=== PATIENT | female | born 1990 | race Caucasian/White ===

== ENCOUNTER 2017-09-03 17:50 | Emergency (ER) | payer MEDICAID ==
[2017-09-03 18:09] VITALS: BP 128/71
[2017-09-03] MEDS ORDERED: LIDOCAINE 1% INJ-PF (10 MG/ML) 30 ML SDV INJ ONE (19:23)
[2017-09-03] MEDS ORDERED: OXYCODONE-ACETAMINOPHEN 5-325 MG TABLET PO ONE (19:23)
--- NOTE | 2017-09-03 19:28 | ER Document Report ---
ED Skin Rash/Insect Bite/Abscs - General Chief Complaint: Abscess Stated Complaint: POSSIBLE ABSCESS Time Seen by Provider: 09/03/17 19:18 Mode of Arrival: Ambulatory Information source: Patient Notes: 27-year-old female presents to ED for large abscess to the light left forearm. She states she had a splinter in her arm a couple weeks ago and that she tried to get out. She states there was a little teary bump on her arm for about 2 weeks and yesterday is become much larger and then today it is very painful red and swollen. states he did not even notice it throughout the day that is how much it has grown today. TRAVEL OUTSIDE OF THE [place] IN LAST 30 DAYS: No - HPI Patient complains to provider of: Tender/swollen area Onset: Other - Started 2 weeks ago Onset/Duration: Gradual - very much larger yesterday and today Quality of pain: Sharp, Throbbing Severity: Severe Pain Level: 5 Skin Character: Abscess - Left arm Quality of rash: Painful Identify cause: Yes - States she tried to take the splint about a couple weeks ago Exacerbated by: Movement Relieved by: Denies Similar symptoms previously: Yes Recently seen / treated by doctor: No - Related Data Allergies/Adverse Reactions: amoxicillin [Amoxicillin] Allergy (Verified 11/13/13 06:56) Past Medical History - General Information source: Patient Last Menstrual Period: 08/14/2017 - Social History Smoking Status: Current Every Day Smoker Cigarette use (# per day): Yes - Pack per day Chew tobacco use (# tins/day): No Smoking Education Provided: Yes - 4 minutes Frequency of alcohol use: Heavy - 1-2 glasses of wine either every day or every other day Drug Abuse: None Occupation: Housewife Lives with: Family Family History: denies: Arthritis, CAD, COPD, CVA, DM, Hyperlipidemia, Hypertension, Malignancy, Thyroid Disfunction Patient has suicidal ideation: No Patient has homicidal ideation: No - Past Medical History Cardiac Medical History: Reports: None Pulmonary Medical History: Reports: None EENT Medical History: Reports: None Neurological Medical History: Reports: None Endocrine Medical History: Reports: None Renal/ Medical History: Reports: None Malignancy Medical History: Reports: None GI Medical History: Reports: None Musculoskeltal Medical History: Reports None Skin Medical History: Reports None Psychiatric Medical History: Reports: Hx Depression Traumatic Medical History: Reports: None Infectious Medical History: Reports: None Surgical Hx: Negative Past Surgical History: Reports: None - Immunizations Immunizations up to date: Yes Hx Diphtheria, Pertussis, Tetanus Vaccination: Yes Review of Systems - Review of Systems Constitutional: No symptoms reported EENT: No symptoms reported Cardiovascular: No symptoms reported Respiratory: No symptoms reported Gastrointestinal: No symptoms reported Genitourinary: No symptoms reported Female Genitourinary: No symptoms reported Musculoskeletal: No symptoms reported Skin: Other Hematologic/Lymphatic: No symptoms reported Neurological/Psychological: No symptoms reported -: Yes All other systems reviewed and negative Physical Exam - Vital signs Vitals: Temp Pulse Resp BP Pulse Ox 99.0 F 108 H 16 128/71 H 99 09/03/17 18:07 09/03/17 18:07 09/03/17 18:07 09/03/17 18:07 09/03/17 18:07 Interpretation: Normal - General General appearance: Appears well, Alert - HEENT Head: Normocephalic, Atraumatic Eyes: Normal Pupils: PERRL - Respiratory Respiratory status: No respiratory distress Chest status: Nontender Breath sounds: Normal Chest palpation: Normal - Cardiovascular Rhythm: Regular Heart sounds: Normal auscultation Murmur: No - Abdominal Inspection: Normal Distension: No distension Bowel sounds: Normal Tenderness: Nontender Organomegaly: No organomegaly - Back Back: Normal, Nontender - Extremities General upper extremity: Normal inspection, Nontender, Normal color, Normal ROM , Normal temperature General lower extremity: Normal inspection, Nontender, Normal color, Normal ROM , Normal temperature, Normal weight bearing. No: Brenden's sign - Neurological Neuro grossly intact: Yes Cognition: Normal Orientation: AAOx4 Oxford Coma Scale Eye Opening: Spontaneous Oxford Coma Scale Verbal: Oriented Oxford Coma Scale Motor: Obeys Commands Oxford Coma Scale Total: 15 Speech: Normal Motor strength normal: LUE, RUE, LLE, RLE Sensory: Normal - Psychological Associated symptoms: Normal affect, Normal mood - Skin Skin Temperature: Warm Skin Moisture: Dry Skin Color: Normal Skin irregularity: Abscess - large with cellulitis to elbow down almost to wrist Location of irregularity: Extremities - Left forearm Character of irregularity: Erythematous Irregularity with: Swelling, Tenderness, Warmth, Inflammation Course - Re-evaluation Re-evalutation: 09/03/17 21:[address] Stock due to the size and location of the abscess. He agreed that the patient could be started on clindamycin. Patient was started on clindamycin in the emergency room. She was treated with that after the I&D. Large amount of drainage was removed from the abscess. She was discharged home with a small prescription of Percocet and a prescription of clindamycin. Patient to return to the ED in 2 days to have the abscess reassessed and the packing removed. - Vital Signs Vital signs: Temp Pulse Resp BP Pulse Ox 99.0 F 108 H 16 128/71 H 99 09/03/17 18:07 09/03/17 18:07 09/03/17 18:07 09/03/17 18:07 09/03/17 18:07 Procedures - Incision and Drainage Left Arm Time completed: 20:10 Type: Simple Anesthetic type: 1% Lidocaine mL's of anesthetic: 10 Blade size: 11 I&D procedure: Shurclens applied, Iodoform packing placed Incision Method: Incision made by scalpel Amount/type of drainage: large amount purulent drainage Discharge - Discharge Clinical Impression: Abscess of left forearm Condition: Stable Disposition: HOME, SELF-CARE Instructions: Family Physicians / Practices Additional Instructions: ABSCESS: You have an abscess (boil). This a pus-forming infection, usually due to staph. Some boils may be left to drain on their own, but most require lancing. From the time the tender lump first appears, it may be three or four days before the abscess is ready to farhat. Local heat and rest help at this stage of treatment. An antibiotic may prevent spread of the infection. Once the abscess is opened, packing may be placed into it. This is done so pus is not sealed inside by premature closure of the cavity. The packing will be removed at your follow-up visit or you may be advised to remove it yourself at home. Sometimes this packing must be replaced a few times during healing. The wound will heal with surprisingly little scar. Depending on the size and location of an abscess, healing can take one to four weeks. You may shower and wash the area around the incision site two or three times a day. Antibiotics may be prescribed, but are usually not necessary after an abscess has been drained. If you develop fever, chills, worsening pain, or increasing swelling in the area, call the doctor or return immediately. POST INCISION AND DRAINAGE: You have had an incision made to allow drainage of an abscess. The incision must remain open so that pus and debris can drain from the wound. If the abscess cavity is large, packing is placed. This keeps the tissues from collapsing and trapping pus inside, while the body shrinks the cavity. The packing may need to be replaced every day or two. The physician will instruct you on the packing. Keep a bulky dressing over the area. Replace it if it becomes saturated with blood or pus. Do not disturb the packing (if present). You may shower and cleanse the area with gentle soap and warm water two or three times a day. Local warmth may be soothing, and may promote faster healing. Return if you develop high fever or chills, or if you note spreading redness, increasing swelling, or increasing tenderness. ORAL NARCOTIC MEDICATION: You have been given a prescription for pain control. This medication is a narcotic. It's best taken with food, as nausea can result if taken on an empty stomach. Don't operate machinery or drive within six hours of taking this medication. Do not combine this medicine with alcohol, or with any medication which can cause sedation (such as cold tablets or sleeping pills) unless you get permission from the physician. Narcotics tend to cause constipation. If possible, drink plenty of fluids and eat a diet high in fiber and fruits. Clindamycin You have been given a prescription for the antibiotic clindamycin. It is often prescribed for infections in the mouth, such as dental infections or abscesses, and for skin infections due to MRSA. It's important that you take all the medication, unless instructed otherwise by your physician. Failure to complete the entire course can result in relapse of your condition. Common side effects of antibiotics include nausea, intestinal cramping, or diarrhea. Women may develop vaginal yeast infections, and babies can get yeast (thrush) in the mouth following the use of antibiotics. Contact your physician if you develop significant side effects from this medication. Allergy to this antibiotic can result in hives, wheezing, faintness, or itching. If symptoms of allergy occur, stop the medication and call the doctor. Return in 48 hours to have this abscess reassessed the packing removed and possibly replaced. FOLLOW-UP CARE: Most simple abscesses will not require a follow up visit. If you had packing placed in the abscess, remove it as instructed by the physician. If you have been referred to a physician for follow-up care, call the physicians office for an appointment as you were instructed or within the next two days. If you experience worsening or a significant change in your symptoms, return to the Emergency Department at any time for re-evaluation. Prescriptions: Oxycodone HCl/Acetaminophen [Percocet 5-325 mg Tablet] 1 tab PO Q6HP PRN #5 tablet PRN Reason: Clindamycin HCl 300 mg PO QID #28 capsule Forms: Elevated Blood Pressure, Smoking Cessation Education
[2017-09-03] MEDS ORDERED: CLINDAMYCIN HCL 150 MG CAPSULE PO ONE (20:09)
[2017-09-03] MEDS ORDERED: DIPH/PERTUSS(ACELL)/TETANUS VAC/PF 0.5 ML SYR (>=10YO) IM ONE (20:09)
== END 2017-09-03 20:54 | disposition home or self-care (01) ==
LOC: ER 17:50
DX: L02.414 Cutaneous abscess of left upper limb (principal); L03.114 Cellulitis of left upper limb; F17.210 Nicotine dependence, cigarettes, uncomplicated; Z71.6 Tobacco abuse counseling; Z88.0 Allergy status to penicillin
CPT/HCPCS: 99406; 99283; 90471; 90715; 10060; A6266; J3490

== ENCOUNTER 2017-09-06 11:29 | Emergency (ER) | payer MEDICAID ==
[2017-09-06 11:48] VITALS: BP 106/54
[2017-09-06] MEDS ORDERED: HYDROCODONE/ACETAMINOPHEN 5-325 MG TABLET PO ONE (12:16)
--- NOTE | 2017-09-06 12:16 | ER Document Report ---
ED Wound - General Chief Complaint: Wound Recheck Stated Complaint: WOUND DRESSING Time Seen by Provider: 09/06/17 12:01 Mode of Arrival: Ambulatory Information source: Patient Notes: Patient is a 27-year-old female who was here 3 days ago and had an abscess drained on her left forearm, packed, she is here today to get the packing removed and check the wound. She states it has gotten a lot better but is still very painful. She denies any fevers or chills, she is on antibiotics that were given to her. TRAVEL OUTSIDE OF THE [place] IN LAST 30 DAYS: No - Related Data Allergies/Adverse Reactions: amoxicillin [Amoxicillin] Allergy (Verified 11/13/13 06:56) Past Medical History - General Information source: Patient - Social History Smoking Status: Current Every Day Smoker Chew tobacco use (# tins/day): No Frequency of alcohol use: Social Drug Abuse: None Family History: denies: Arthritis, CAD, COPD, CVA, DM, Hyperlipidemia, Hypertension, Malignancy, Thyroid Disfunction Patient has suicidal ideation: No Patient has homicidal ideation: No Renal/ Medical History: Denies: Hx Peritoneal Dialysis Psychiatric Medical History: Reports: Hx Depression - Immunizations Immunizations up to date: Yes Hx Diphtheria, Pertussis, Tetanus Vaccination: Yes Review of Systems - Review of Systems Constitutional: No symptoms reported EENT: No symptoms reported Cardiovascular: No symptoms reported Respiratory: No symptoms reported Gastrointestinal: No symptoms reported Genitourinary: No symptoms reported Female Genitourinary: No symptoms reported Musculoskeletal: No symptoms reported Skin: See HPI Hematologic/Lymphatic: No symptoms reported Neurological/Psychological: No symptoms reported Physical Exam - Vital signs Vitals: Temp Pulse Resp BP Pulse Ox 98.0 F 71 16 106/54 L 100 09/06/17 11:47 09/06/17 11:47 09/06/17 11:47 09/06/17 11:47 09/06/17 11:47 - Notes Notes: PHYSICAL EXAMINATION: GENERAL: Well-appearing and in no acute distress. HEAD: Atraumatic, normocephalic. EYES: Pupils equal round and reactive to light, extraocular movements intact, sclera anicteric, conjunctiva are normal. NECK: Normal range of motion, supple without lymphadenopathy LUNGS: CTAB and equal. No wheezes rales or rhonchi. HEART: Regular rate and rhythm without murmurs EXTREMITIES: Normal range of motion, no pitting edema. No cyanosis. NEUROLOGICAL: Cranial nerves grossly intact. Normal sensory/motor exams. PSYCH: Normal mood, normal affect. SKIN: Warm, Dry, normal turgor, packing inside left forearm, dorsal incision, pus over packing, slight erythema surrounding about a centimeter around incision only, tender to palpation Course - Re-evaluation Re-evalutation: 09/06/17 12:15 Packing was removed, incision after packing removed looks very well, minimal erythema, no drainage after packing was removed. Patient to continue antibiotics. - Vital Signs Vital signs: Temp Pulse Resp BP Pulse Ox 98.0 F 71 16 106/54 L 100 09/06/17 11:47 09/06/17 11:47 09/06/17 11:47 09/06/17 11:47 09/06/17 11:47 Discharge - Discharge Clinical Impression: Abscess packing removal Condition: Stable Disposition: HOME, SELF-CARE Additional Instructions: Return immediately for any new or worsening symptoms. Follow up with primary care provider, call tomorrow to make followup appointment. Prescriptions: Ibuprofen [Motrin 600 Mg Tablet] 600 mg PO TID #15 tablet
== END 2017-09-06 12:30 | disposition home or self-care (01) ==
LOC: ER 11:29
DX: Z48.01 Encounter for change or removal of surgical wound dressing (principal); L02.414 Cutaneous abscess of left upper limb; F17.200 Nicotine dependence, unspecified, uncomplicated; Z88.0 Allergy status to penicillin
CPT/HCPCS: 99282

== ENCOUNTER 2018-04-17 10:25 | Inpatient (IN) | payer MEDICAID ==
[2018-04-17] MEDS ORDERED: RINGERS SOLUTION,LACTATED 1,000 ML IV PRN (10:49)
[2018-04-17] MEDS ORDERED: CLINDAMYCIN 900 MG/D5W RTU 900 MG/50 ML RTUPB IV ONE (11:09)
[2018-04-17 11:54] LABS: ABSOLUTE EOSINOPHILS # (AUTO) 0.1 10^3/uL (0.0-0.6); ABSOLUTE LYMPHOCYTES (AUTO) 2.1 10^3/uL (0.5-4.7); ABSOLUTE MONOCYTES (AUTO) 0.6 10^3/uL (0.1-1.4); ABSOLUTE NEUT (AUTO) 7.9 10^3/uL (1.7-8.2); BASOPHILS % (AUTO) 0.2 % (0-2); EOSINOPHILS % (AUTO) 0.5 % (0-6); HEMATOCRIT 26.9 % (36.0-47.0); HEMOGLOBIN 9.4 g/dL (12.0-15.5); LYMPHOCYTES % (AUTO) 19.9 % (13-45); MEAN CORPUSCULAR HEMOGLOBIN 29.7 pg (27.0-33.4); MEAN CORPUSCULAR HGB CONC 34.8 g/dL (32.0-36.0); MEAN CORPUSCULAR VOLUME 85 fl (80-97); MONOCYTES % (AUTO) 5.9 % (3-13); PLATELET COUNT 206 10^3/uL (150-450); RED BLOOD COUNT 3.15 10^6/uL (3.72-5.28); RED CELL DISTRIBUTION WIDTH 12.7 % (11.5-14.0); SEGMENTED NEUTROPHILS % (AUTO) 73.5 % (42-78); TOTAL CELLS COUNTED % (AUTO) 100 %; WHITE BLOOD COUNT 10.7 10^3/uL (4.0-10.5)
[2018-04-17] MEDS: CLINDAMYCIN 900 MG/D5W RTU 900 MG/50 ML RTUPB IV SCH ×2 (11:56→21:05)
[2018-04-17] MEDS ORDERED: CEFAZOLIN 1 GM/D5W RTU 1 GM/50 ML RTUPB IV ONE ×2 (12:29→16:21)
[2018-04-17] MEDS ORDERED: OXYTOCIN 10 UNIT/ML VIAL ONE (12:46)
[2018-04-17] MEDS ORDERED: MISOPROSTOL 0.2 MG TABLET ONE (12:47)
[2018-04-17] MEDS ORDERED: EPHEDRINE SULFATE INJ 50 MG/1 ML AMPULE ONE (12:47)
[2018-04-17] MEDS ORDERED: FENTANYL CITRATE INJ/PF 100 MCG/2 ML AMPUL ONE (12:47)
[2018-04-17] MEDS ORDERED: LIDOCAINE 1% INJ-PF (10 MG/ML) 30 ML SDV ONE (12:48)
[2018-04-17] MEDS ORDERED: FENTANYL/BUPIVACAINE/NS/PF 300 MCG/150 ML RTUINJ EPI ONE (12:48)
[2018-04-17] MEDS ORDERED: OXYTOCIN/NORMAL SALINE 20 UNIT/1,000 ML RTUINJ ONE (12:48)
[2018-04-17] MEDS ORDERED: BUPIVACAINE HCL 0.5 % INJ/PF 30 ML SDV ONE ×2 (12:55→16:54)
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
[2018-04-17] MEDS ORDERED: OXYTOCIN/NORMAL SALINE 20 UNIT/1,000 ML RTUINJ IV PRN ×2 (15:06→18:46)
[2018-04-17] MEDS ORDERED: CEFAZOLIN 1 GM/D5W RTU 1 GM/50 ML RTUPB IV SCH (18:00)
[2018-04-17] MEDS ORDERED: ACETAMINOPHEN 650 MG SUPP.RECT PR PRN (18:46)
[2018-04-17] MEDS ORDERED: ZOLPIDEM TARTRATE 5 MG TABLET PO PRN (18:46)
[2018-04-17] MEDS ORDERED: MEASLES,MUMPS&RUBELLA VACC/PF 0.5 ML VIAL SUBCUT PRN (18:46)
[2018-04-17] MEDS ORDERED: DIPHENHYDRAMINE HCL 25 MG CAPSULE PO PRN (18:46)
[2018-04-17] MEDS ORDERED: BENZOCAINE/MENTHOL AEROSOL SPRAY 56 ML TOP PRN (18:46)
[2018-04-17] MEDS ORDERED: NA PHOS,M-B/NA PHOS,DI-BA (ADULT) 133 ML ENEMA PR PRN (18:46)
[2018-04-17] MEDS ORDERED: PSEUDOEPHEDRINE HCL 30 MG TABLET PO PRN (18:46)
[2018-04-17] MEDS ORDERED: DIPH/PERTUSS(ACELL)/TETANUS VAC/PF 0.5 ML SYR (>=10YO) IM PRN (18:46)
[2018-04-17] MEDS ORDERED: DIBUCAINE 1% OINTMENT 28 GM TP PRN (18:46)
[2018-04-17] MEDS ORDERED: GLYCERIN/WITCH HAZEL LEAF 1 EACH MED..PAD TP PRN (18:46)
[2018-04-17] MEDS ORDERED: MAGNESIUM HYDROXIDE SUSP 30 ML UDCUP PO PRN (18:46)
[2018-04-17] MEDS ORDERED: PROMETHAZINE HCL INJ 25 MG/1 ML VIAL IV PRN (18:46)
[2018-04-17] MEDS ORDERED: PROMETHAZINE HCL 25 MG TABLET PO PRN (18:46)
[2018-04-17] MEDS ORDERED: PROMETHAZINE HCL 25 MG SUPP.RECT PR PRN (18:46)
--- NOTE | 2018-04-17 19:42 | Warning Signs in Babies ---
VOD Warning Signs Datetime Report Generated by [facility]: 04/17/2018 19:42 VOD#608 -Warning Signs in Babies: Viewed with Parent(s)/Family (04/17/2018 10:59:Renetta Gandara RN)
[2018-04-17] MEDS ORDERED: IBUPROFEN 800 MG TABLET ONE (20:43)
[2018-04-17 22:00] LABS: APPEARANCE,URINE CLOUDY; BILIRUBIN,URINE NEGATIVE (NEGATIVE); COLOR,URINE YELLOW; GLUCOSE, URINE 50 mg/dL (NEGATIVE); KETONES,URINE NEGATIVE (NEGATIVE); LEUKOCYTE ESTERASE,URINE SMALL (NEGATIVE); NITRITE,URINE NEGATIVE (NEGATIVE); PROTEIN,URINE 100 mg/dL (NEGATIVE); URINE SPECIFIC GRAVITY 1.013; UROBILINOGEN,URINE NEGATIVE mg/dL (<2.0)
[2018-04-17] MEDS ORDERED: FAMOTIDINE 20 MG TABLET PO SCH (22:00)
[2018-04-17 22:16] LABS: URINE AMPHETAMINES SCREEN NEGATIVE; URINE BARBITURATES SCREEN NEGATIVE; URINE BENZODIAZEPINES SCREEN NEGATIVE; URINE COCAINE SCREEN NEGATIVE; URINE MARIJUANA (THC) SCREEN NEGATIVE; URINE METHADONE SCREEN NEGATIVE; URINE PHENCYCLIDINE SCREEN NEGATIVE
[2018-04-17] MEDS: IBUPROFEN 800 MG TABLET PO SCH (23:47)
[2018-04-18] MEDS: IBUPROFEN 800 MG TABLET PO SCH (05:42)
[2018-04-18 06:55] LABS: HEMATOCRIT 27.9 % (36.0-47.0); HEMOGLOBIN 9.4 g/dL (12.0-15.5); MEAN CORPUSCULAR HGB CONC 33.9 g/dL (32.0-36.0); MEAN CORPUSCULAR VOLUME 86 fl (80-97); PLATELET COUNT 195 10^3/uL (150-450); RED BLOOD COUNT 3.26 10^6/uL (3.72-5.28); RED CELL DISTRIBUTION WIDTH 13.1 % (11.5-14.0); WHITE BLOOD COUNT 9.2 10^3/uL (4.0-10.5)
[2018-04-18 08:22] VITALS: BP 126/72
[2018-04-18] MEDS ORDERED: FERROUS SULFATE 325 MG TABLET PO SCH (10:00)
[2018-04-18] MEDS ORDERED: SENNOSIDES/DOCUSATE 8.6-50 MG 1 EACH TABLET PO SCH (10:00)
[2018-04-18] MEDS ORDERED: PRENATAL VITAMIN W DHA CAPSULE PO SCH (10:00)
[2018-04-18] MEDS ORDERED: BUPRENORPHINE HCL SL SCH (10:00)
[2018-04-18] MEDS ORDERED: DOCUSATE SODIUM 100 MG CAPSULE PO SCH (10:00)
--- NOTE | 2018-04-18 10:38 | PDOC PROGRESS REPORT ---
Subjective-OB Progress Note for:: 04/18/18 Subjective: pt doing well, going outside to smoke frequently per staff. Pt reports light bleeding, reg diet and voiding without difficulty. She would like to be discharged today, states baby is unable to go home anyway. Physical Exam (OB) Vital Signs: Temp Pulse Resp BP Pulse Ox 97.5 F 73 16 126/72 H 99 04/18/18 07:13 04/18/18 07:13 04/18/18 07:13 04/18/18 07:13 04/18/18 07:13 Intake & Output 04/17/18 04/18/18 04/19/18 06:59 06:59 05:59 Intake Total 500 Balance 500 Weight 58.7 kg - PIH/Pre-Eclampsia Clonus: Negative Headache: Absent Epigastric Pain: No Visual Changes: No - Lochia Lochia Amount: Scant < 10 ml Lochia Color: Rubra/Red - Abdomen Description: Soft, Flat Hernia Present: No Fundal Description: Firm, Midline Fundal Height: u/u - u/2 Objective-Diagnostic Laboratory: 04/18/18 06:39 04/17/18 04/17/18 04/17/18 10:35 11:38 11:38 WBC 10.7 H RBC 3.15 L Hgb 9.4 L Hct 26.9 L MCV 85 MCH 29.7 MCHC 34.8 RDW 12.7 Plt Count 206 Seg Neutrophils % 73.5 Lymphocytes % 19.9 Monocytes % 5.9 Eosinophils % 0.5 Basophils % 0.2 Absolute Neutrophils 7.9 Absolute Lymphocytes 2.1 Absolute Monocytes 0.6 Absolute Eosinophils 0.1 Absolute Basophils 0.0 Urine Color YELLOW Urine Appearance CLOUDY Urine pH 6.0 Ur Specific [place] 1.013 Urine Protein 100 H Urine Glucose (UA) 50 H Urine Ketones NEGATIVE Urine Blood SMALL H Urine Nitrite NEGATIVE Ur Leukocyte Esterase SMALL H Blood Type A POSITIVE Antibody Screen NEGATIVE 04/18/18 06:39 WBC 9.2 RBC 3.26 L Hgb 9.4 L Hct 27.9 L MCV 86 MCH 29.0 MCHC 33.9 RDW 13.1 Plt Count 195 Seg Neutrophils % Lymphocytes % Monocytes % Eosinophils % Basophils % Absolute Neutrophils Absolute Lymphocytes Absolute Monocytes Absolute Eosinophils Absolute Basophils Urine Color Urine Appearance Urine pH Ur Specific [place] Urine Protein Urine Glucose (UA) Urine Ketones Urine Blood Urine Nitrite Ur Leukocyte Esterase Blood Type Antibody Screen Assessment and Plan(PN) - Assessment and Plan (1) Delivery normal Is this a current diagnosis for this admission?: Yes (2) Hepatitis C infection Qualifiers: Viral hepatitis chronicity: acute Is this a current diagnosis for this admission?: Yes (3) History of drug abuse Is this a current diagnosis for this admission?: Yes (4) History of depression Is this a current diagnosis for this admission?: Yes - Time Spent with Patient Time with patient: Less than 15 minutes Medications reviewed and adjusted accordingly: Yes - Disposition Anticipated Discharge: Home Within: within 24 hours
--- NOTE | 2018-04-18 10:39 | PDOC DISCHARGE SUMMARY ---
Final Diagnosis Discharge Date: 04/18/18 - Final Diagnosis (1) Delivery normal Is this a current diagnosis for this admission?: Yes (2) Hepatitis C infection Is this a current diagnosis for this admission?: Yes (3) History of drug abuse Is this a current diagnosis for this admission?: Yes (4) History of depression Is this a current diagnosis for this admission?: Yes Discharge Data - Discharge Medication Home Medications: Buprenorphine HCl [Subutex 8 mg Sublingual Tablet] 2.5 tab SL DAILY 04/17/18 Vit,Calc76/Iron/Folic [Prenatabs Rx Tablet] 1 each PO DAILY 04/17/18 Reason(s) for Admission: Onset of Labor, PROM, Group B Strep Positive Procedures: NST Intrapartum Procedure(s): Spontaneous Vaginal Delivery - Diagnosis Test Laboratory: Temp Pulse Resp BP Pulse Ox 97.5 F 73 16 126/72 H 99 04/18/18 07:13 04/18/18 07:13 04/18/18 07:13 04/18/18 07:13 04/18/18 07:13 04/17/18 04/17/18 04/18/18 10:35 11:38 06:39 RBC 3.15 L 3.26 L Hgb 9.4 L 9.4 L Hct 26.9 L 27.9 L Urine Opiates Screen NEGATIVE - Discharge information/Instructions Discharge Activity: Balance Activity w/Rest, Pelvic Rest Discharge Diet: Regular Disposition: HOME, SELF-CARE Follow up with: [facility] in: 3, Weeks
[2018-04-18] MEDS ORDERED: MEDROXYPROGESTERONE ACET INJ 150 MG/1 ML VIAL IM ONE (10:41)
--- NOTE | 2018-04-22 14:12 | Delivery Summary ---
Del Sum A-C Datetime Report Generated by CPN: 04/22/2018 14:12 DELIVERY PERSONNEL DELIVERY PERSONNEL: [id number] Delivery Doctor:: Roxann Coles MD Anesthesiologist:: Mary Koroma MD Labor and Delivery Nurse:: Renetta Gandara RN Nursery Nurse:: Pranav Pena RN Social Security Assessor/PSYCHIATRIC MENTAL HEALTH NURSE: Rica Alvarez CST Social Security Assessor/PSYCHIATRIC MENTAL HEALTH NURSE: Britney Damon CNA II MATERNAL INFORMATION Delivery Anesthesia: Epidural Medications After Delivery: Pitocin Drip 20 Units/1000ml NSS Estimated Blood Loss (ml): 250 Maternal Complications: Premature Rupture of Membranes Complication Details: Tight Nucal X1 LABOR SUMMARY EDC: 05/01/2018 00:00 Attempted: No Labor Anesthesia: Epidural LABOR INFORMATION Reason for Induction: Not Applicable Onset of Labor: 04/17/2018 08:00 Complete Dilatation: 04/17/2018 17:58 Group B Beta Strep: positive Antibiotics # of Doses: 3 Antibiotics Time of Last Dose: 1630 Name of Antibiotic Given: Clindamycin and Ancef Steroids Given: None Reason Steroids Not Administered: Not Applicable MEMBRANES Membranes Rupture Method: Spontaneous Rupture of Membranes: 04/17/2018 10:00 Length of Rupture (hr): 8.35 Amniotic Fluid Color: Clear Amniotic Fluid Amount: Moderate Amniotic Fluid Odor: Normal STAGES OF LABOR Stage 1 hr: 9 Stage 1 min: 58 Stage 2 hr: 0 Stage 2 min: 23 Stage 3 hr: 0 Stage 3 min: 3 Total Time in Labor hr: 10 Total Time in Labor min: 24 VAGINAL DELIVERY Episiotomy: None Laceration #1: None Laceration Extension #1: N/A Laceration Repair: Not Applicable Sponge Count Correct: Vaginal Sweep Performed Sharps Count Correct: Yes CSECTION DELIVERY Primary Indication: N/A Secondary Indication: N/A BABY A INFORMATION Delivery Date/Time: 04/17/2018 18:21 Method of Delivery: Vaginal Born in Route : No : N/A Forceps: N/A Vacuum Extraction: N/A Shoulder Dystocia : No PRESENTATION/POSITION BABY A Presentation: Cephalic Cephalic Presentation: Vertex Vertex Position: Left Occipital Anterior Breech Presentation: N/A PLACENTA INFORMATION BABY A Placenta Delivery Time : 04/17/2018 18:24 Placenta Method of Delivery: Spontaneous Placenta Status: Delivered SCORES BABY A Heart Rate 1 min: >100 bpm Resp Effort 1 min: Good Cry Reflex Irritability 1 min: Cough or Sneeze or Pulls Away Muscle Tone 1 min: Active Motion Color 1 min: Body Shafer, Extremities Blue Resuscitation Effort 1 min: Tactile Stimulation SCORE 1 MIN: 9 Heart Rate 5 min: >100 bpm Resp Effort 5 min: Good Cry Reflex Irritability 5 min: Cough or Sneeze or Pulls Away Muscle Tone 5 min: Active Motion Color 5 min: Body Shafer, Extremities Blue Resuscitation Effort 5 min: Tactile Stimulation SCORE 5 MIN: 9 INFORMATION BABY A Gestational Age at Delivery: 38.0 Gestational Status: Early Term- 37- 38.6 Weeks Outcome : Liveborn Condition : Stable Infant Sex: Male IDENTIFICATION BABY A Verification Date/Time: 04/17/2018 19:05 ID Band Number: [id number] Mother's Name Verified: Yes RN Verifying : Meredith Gandara, [facility] Additional Verifying Personnel: Jose A Pena RN WEIGHT/LENGTH BABY A Infant Birthweight (gm): 2830 Weight (lb): 6 Weight (oz): 4 Infant Length (in): 19.00 Infant Length (cm): 48.26 CORD INFORMATION BABY A No. Cord Vessels: 3 Nuchal Cord : Around Neck x1, Tight Cord Blood Taken: Yes-For Storage (Mom's Blood type +) Infant Suction: Mouth; Nose ASSESSMENT BABY A Infant Complications: None Physical Findings at Delivery: Within Normal Limits Infant Respirations: Appears Normal Skin to Skin: Yes Transferred To: Remains with Mother BABY B INFORMATION : N/A SIGNATURES Signature: with User ID: [email or web address] : I was personally available for consultation and serving as supervising physician for the MLP.
== END 2018-04-18 12:50 | disposition home or self-care (01) | DRG 806 ==
LOC: LC 10:25 → LR 10:58 → 2S 21:16
PROVIDERS: ADMIT Obstetrics & Gynecology; ATTEND Obstetrics & Gynecology
PROC: 10E0XZZ Delivery of Products of Conception, External Approach (ICD-10-PCS; principal; 2018-04-17)
PROC: 4A1HXCZ Monitoring of Products of Conception, Cardiac Rate, External Approach (ICD-10-PCS; 2018-04-17)
DX: O98.42 Viral hepatitis complicating childbirth (principal); B17.10 Acute hepatitis C without hepatic coma; Z37.0 Single live birth; O69.1XX0 Labor and delivery complicated by cord around neck, with compression, not applicable or unspecified; O99.334 Smoking (tobacco) complicating childbirth; F17.200 Nicotine dependence, unspecified, uncomplicated; O99.52 Diseases of the respiratory system complicating childbirth; J45.909 Unspecified asthma, uncomplicated; O99.344 Other mental disorders complicating childbirth; F43.10 Post-traumatic stress disorder, unspecified; O99.824 Streptococcus B carrier state complicating childbirth; O42.92 Full-term premature rupture of membranes, unspecified as to length of time between rupture and onset of labor; Z88.0 Allergy status to penicillin; Z3A.38 38 weeks gestation of pregnancy
CPT/HCPCS: 36415; 80307; 81005; 85025; 85027; 86592; 86850; 86900; 86901; 94760; J0690; J2590; J3010; J3490

== ENCOUNTER 2019-12-17 08:51 | Emergency (ER) | payer MEDICAID ==
[2019-12-17 10:16] LABS: APPEARANCE,URINE CLOUDY; BILIRUBIN,URINE NEGATIVE (NEGATIVE); COLOR,URINE YELLOW; GLUCOSE, URINE NEGATIVE (NEGATIVE); KETONES,URINE NEGATIVE (NEGATIVE); LEUKOCYTE ESTERASE,URINE LARGE (NEGATIVE); NITRITE,URINE POSITIVE (NEGATIVE); PROTEIN,URINE 30 mg/dL (NEGATIVE); URINE SPECIFIC GRAVITY 1.017; UROBILINOGEN,URINE NEGATIVE mg/dL (<2.0)
[2019-12-17] MEDS ORDERED: CEFTRIAXONE INJ 1000 MG VIAL IV ONE (10:49)
--- NOTE | 2019-12-17 10:51 | ER Document Report ---
ED GI/ - General Chief Complaint: Fever Stated Complaint: FLANK PAIN Time Seen by Provider: 12/17/19 10:02 Notes: This 29-year-old woman presents to the emergency department with complaint of urinary symptoms. She was complaining of foul-smelling urine with urgency and frequency. She has had a history of UTI in the past. States that on Friday she developed fever, back pain, chills and urgency. States that she waited to see if the symptoms will improve however, they have worsened. TRAVEL OUTSIDE OF THE [place] IN LAST 30 DAYS: No - Related Data Allergies/Adverse Reactions: amoxicillin [Amoxicillin] Allergy (Verified 12/17/19 09:41) Past Medical History - Social History Smoking Status: Current Every Day Smoker Family History: denies: Arthritis, CAD, COPD, CVA, DM, Hyperlipidemia, Hypertension, Malignancy, Thyroid Disfunction Renal/ Medical History: Denies: Hx Peritoneal Dialysis Psychiatric Medical History: Reports: Hx Depression - Immunizations Immunizations up to date: Yes Hx Diphtheria, Pertussis, Tetanus Vaccination: Yes Review of Systems - Review of Systems Notes: Constitutional:+ fever. HENT: Negative for sore throat. Eyes: Negative for visual changes. Cardiovascular: Negative for chest pain. Respiratory: Negative for shortness of breath. Gastrointestinal: Negative for abdominal pain, vomiting or diarrhea. Genitourinary: See HPI Musculoskeletal: + Back pain. Skin: Negative for rash. Neurological: Negative for headaches, weakness or numbness. 10 point ROS negative except as marked above and in HPI. Physical Exam - Vital signs Vitals: Temp Pulse Resp BP Pulse Ox 97.6 F 115 H 20 133/78 H 100 12/17/19 08:56 12/17/19 08:56 12/17/19 08:56 12/17/19 08:56 12/17/19 08:56 - Notes Notes: PHYSICAL EXAMINATION: Physical Exam: General: Well-nourished well-developed 29-year-old female in mild distress secondary to pain HEENT: NC/AT, pupils equal round and reactive to light, MM moist,nares clear, oropharynx clear, airway patent Neck: supple, no adenopathy, no masses. Good range of motion Lungs: clear, no wheezing, no rales no rhonchi CVS: Regular rate and rhythm no murmur gallop or rub Abdomen: Soft, active, nontender, no masses, no hepatosplenomegaly Back: + Tenderness right CVA Ext: No edema, clubbing or cyanosis. Neuro: Alert and responsive, moving all 4 extremities on command, cranial nerves intact, no focal findings Skin: Intact no open lesions, no rash Course - Re-evaluation Re-evalutation: 12/17/19 12:15 Patient has very poor peripheral vein access secondary to prior IV drug use. She refuses a external jugular IV, she is given Rocephin 1 g IM and Toradol 60 mg IM. She is also given prescriptions for oral Toradol and cefdinir. I have asked her to push fluids and to use Zofran for nausea, return to the emergency department if her symptoms are worsening or if she has other concerns. Patient is in agreement with this plan. - Vital Signs Vital signs: Temp Pulse Resp BP Pulse Ox 97.8 F 115 H 19 109/72 100 12/17/19 12:01 12/17/19 08:56 12/17/19 12:01 12/17/19 12:01 12/17/19 12:01 - Laboratory Result Diagrams: 12/17/19 10:44 12/17/19 10:44 Laboratory results interpreted by me: 12/17/19 12/17/19 12/17/19 09:35 10:44 10:44 WBC 17.5 H Lymph % (Auto) 10.1 L Absolute Neuts (auto) 14.7 H Seg Neutrophils % 84.2 H Glucose 151 H Total Protein 9.1 H Urine Protein 30 H Urine Nitrite POSITIVE H Ur Leukocyte Esterase LARGE H Discharge - Discharge Clinical Impression: Pyelonephritis Fever Qualifiers: Fever type: unspecified Qualified Code(s): R50.9 - Fever, unspecified Condition: Good Disposition: HOME, SELF-CARE Instructions: Antibiotic Therapy ([facility]), Antinausea Medication ([facility]), Toradol Injection ([facility]), Rocephin ([facility]) Additional Instructions: You were seen and diagnosed in the emergency department with a urinary tract infection and associated complications of pyelonephritis. You were given a shot of antibiotics and a shot of Toradol, prescriptions have been given for Zofran, Toradol tablets, and Cefdinir. Please take those medications as prescribed, follow-up with your primary care doctor in 10 to 14 days for recheck of the urine . If your symptoms are worsening or if you have other concerns you may return to the emergency department for further evaluation and treatment. HOME CARE INSTRUCTIONS & INFORMATION: Thank you for choosing us for your medical needs. We hope you're satisfied with the care you received. After you leave, you must properly care for your problem and, at the same time, observe its progress. Any condition can change. Some illnesses can change rapidly over hours or days. If your condition worsens, return to the Emergency Department or see your physician promptly. ABOUT YOUR X-RAYS AND EKG'S: If you had an EKG or X-rays taken, they have been read by the Emergency Physician. The X-rays and EKG's will also be read by a Radiologist or University Administrative Assistant within 24 hours. If discrepancies are noted, you will be notified by telephone. Please be certain the ED has a correct telephone number & address where you can be reached. Also, realize that some fractures or abnormalities do not show up on initial X-rays. If your symptoms continue, see your physician. ABOUT YOUR LABORATORY TEST: If you had laboratory tests, the results have been reviewed by the Emergency Physician. Some test results (for example cultures) may not be available for several days. You will be contacted if any test result shows you need additional treatment. Please be certain the ED has a correct telephone number and address where you can be reached. ABOUT YOUR MEDICATIONS: You will receive instructions on how to take your medicine on the prescription label you receive. Additional information may be provided by the Pharmacy. If you have questions afterwards, call the ED for clarification or further instructions. Some prescribed medications may cause drowsiness. Do not perform tasks such as driving a car or operating machinery without consulting your Pharmacist. If you feel you need a refill of pain medication, your condition will need re-evaluation. Please do not call for a refill of any medication. ABOUT YOUR SIGNATURE: Signature of this document acknowledges to followin. Understanding that you received emergency treatment and that you may be released before al medical problems are known or treated. Please be certain the ED has a correct phone number & address where you can be reached. 2. Acknowledgement that you will arrange for follow-up care as recommended. 3. Authorization for the Emergency Physician to provide information to your follow-up Physician in order to maximize your care. AT ANY TIME, IF YOUR SYMPTOMS CHANGE SIGNIFICANTLY OR WORSEN OR YOU DEVELOP NEW SYMPTOMS, RETURN TO THE EMERGENCY DEPARTMENT IMMEDIATELY FOR RE-EVALUATION. OUR GOAL IS TO PROVIDE EXCELLENT MEDICAL CARE! WE HOPE THAT WE HAVE MET YOUR EXPECTATIONS DURING YOUR EMERGENCY DEPARTMENT VISIT AND THAT YOU FEEL YOU HAVE RECEIVED EXCELLENT CARE! Prescriptions: Cefdinir 300 mg PO BID #20 capsule Ketorolac Tromethamine [Toradol 10 mg Tablet] 10 mg PO Q6 #14 tablet Ondansetron [Zofran Odt 4 mg Tablet] 1 - 2 tab PO Q4H PRN #10 tab.rapdis PRN Reason: For Nausea/Vomiting
[2019-12-17 11:06] LABS: ABSOLUTE LYMPHOCYTES (AUTO) 1.8 10^3/uL (0.5-4.7); ABSOLUTE NEUT (AUTO) 14.7 10^3/uL (1.7-8.2); BASOPHILS % (AUTO) 0.2 % (0-2); EOSINOPHILS % (AUTO) 0.1 % (0-6); HEMATOCRIT 40.9 % (36.0-47.0); LYMPHOCYTES % (AUTO) 10.1 % (13-45); MEAN CORPUSCULAR HEMOGLOBIN 29.5 pg (27.0-33.4); MEAN CORPUSCULAR HGB CONC 34.2 g/dL (32.0-36.0); MEAN CORPUSCULAR VOLUME 86 fl (80-97); MONOCYTES % (AUTO) 5.4 % (3-13); PLATELET COUNT 164 10^3/uL (150-450); RED BLOOD COUNT 4.75 10^6/uL (3.72-5.28); RED CELL DISTRIBUTION WIDTH 12.6 % (11.5-14.0); SEGMENTED NEUTROPHILS % (AUTO) 84.2 % (42-78); TOTAL CELLS COUNTED % (AUTO) 100 %; WHITE BLOOD COUNT 17.5 10^3/uL (4.0-10.5)
[2019-12-17 11:15] LABS: ALBUMIN 4.7 g/dL (3.5-5.0); ALKALINE PHOSPHATASE 88 U/L (38-126); ANION GAP 10 (5-19); ASPARTATE AMINO TRANSFERASE 29 U/L (14-36); BILIRUBIN,DIRECT 0.1 mg/dL (0.0-0.4); BILIRUBIN,TOTAL 0.6 mg/dL (0.2-1.3); BLOOD UREA NITROGEN 14 mg/dL (7-20); CALCIUM 9.6 mg/dL (8.4-10.2); CARBON DIOXIDE 24 mmol/L (22-30); CHLORIDE 104 mmol/L (98-107); GLUCOSE 151 mg/dL (75-110); POTASSIUM 4.3 mmol/L (3.6-5.0); TOTAL PROTEIN 9.1 g/dL (6.3-8.2)
[2019-12-17] MEDS ORDERED: KETOROLAC TROMETHAMINE 60 MG/2 ML SDV IM ONE (11:28)
[2019-12-17 12:10] VITALS: BP 109/72
== END 2019-12-17 12:33 | disposition home or self-care (01) ==
LOC: ER 08:51
DX: N12 Tubulo-interstitial nephritis, not specified as acute or chronic (principal); R50.9 Fever, unspecified; R10.9 Unspecified abdominal pain; M54.9 Dorsalgia, unspecified; F17.200 Nicotine dependence, unspecified, uncomplicated; Z88.0 Allergy status to penicillin
CPT/HCPCS: 99283; 96372; 96374; 36415; 83690; 84703; 85025; 80053; 81001; J1885; J0696

== ENCOUNTER 2020-04-08 14:00 | Emergency (ER) | payer MEDICAID ==
--- NOTE | 2020-04-08 14:37 | ER Document Report ---
ED Medical Screen (RME) - General Chief Complaint: Abdominal Pain Stated Complaint: ABDOMINAL PAIN, BACK PAIN Time Seen by Provider: 04/08/20 14:30 Mode of Arrival: Ambulatory Information source: Patient Notes: 29-year-old female presented to ED for complaint of fevers on and off since yesterday pain in the back and abdomen times a week vomiting yesterday. She states she is a former IV drug user and they never can get her blood she is oliguric after 2 tries to get her blood. I have asked the techs to try once and then call lab. She does smoke 1/2 pack a day drinks on holidays does use marijuana occasionally but does not use any IV drugs now according to the patient. She states she has had frequent kidney infections and that is what this feels like. Patient is alert oriented respirations regular nonlabored speaking in full sentences. I have greeted and performed a rapid initial assessment of this patient. A comprehensive ED assessment and evaluation of the patient, analysis of test results and completion of medical decision making process will be conducted by an additional ED providers. TRAVEL OUTSIDE OF THE [place] IN LAST 30 DAYS: No - Related Data Allergies/Adverse Reactions: amoxicillin [Amoxicillin] Allergy (Verified 12/17/19 09:41) Past Medical History Renal/ Medical History: Denies: Hx Peritoneal Dialysis Psychiatric Medical History: Reports: Hx Depression - Immunizations Immunizations up to date: Yes Hx Diphtheria, Pertussis, Tetanus Vaccination: Yes Physical Exam - Vital signs Vitals: Temp Pulse Resp BP Pulse Ox 98.3 F 110 H 16 137/80 H 100 04/08/20 14:04 04/08/20 14:04 04/08/20 14:04 04/08/20 14:04 04/08/20 14:04 Course - Vital Signs Vital signs: Temp Pulse Resp BP Pulse Ox 98.3 F 110 H 16 137/80 H 100 04/08/20 14:04 04/08/20 14:04 04/08/20 14:04 04/08/20 14:04 04/08/20 14:04
[2020-04-08 15:16] LABS: APPEARANCE,URINE CLOUDY; BILIRUBIN,URINE NEGATIVE (NEGATIVE); COLOR,URINE AMBER; GLUCOSE, URINE NEGATIVE (NEGATIVE); KETONES,URINE NEGATIVE (NEGATIVE); LEUKOCYTE ESTERASE,URINE LARGE (NEGATIVE); NITRITE,URINE POSITIVE (NEGATIVE); PROTEIN,URINE 30 mg/dL (NEGATIVE); URINE SPECIFIC GRAVITY 1.026
[2020-04-08] MEDS ORDERED: KETOROLAC TROMETHAMINE 60 MG/2 ML SDV IM ONE (16:36)
--- NOTE | 2020-04-08 16:36 | ER Document Report ---
ED General - General Stated Complaint: ABDOMINAL PAIN, BACK PAIN Time Seen by Provider: 04/08/20 14:30 Mode of Arrival: Ambulatory TRAVEL OUTSIDE OF THE [place] IN LAST 30 DAYS: No - HPI Notes: 29-year-old female with a hx of pyelonephritis and IV drug use is presents to the emergency room with complaints of left-sided flank pain that started 6 days ago, she states she started with a low-grade fever of 100 F yesterday. Patient states she has a history of pyelonephritis is and she does not have any symptoms until it is "really bad". Patient is complaining of lower back pain that has become progressively worse over the last week. Not tried any [id number] medications for the symptoms. Denies any trauma. Patient states she has been trying to smoke weed to help her sleep because the pain is been so severe she has not been able to sleep. Denies any bowel or bladder dysfunction, any saddle anesthesia, vaginal bleeding vaginal discharge. Patient thinks her last menstrual cycle was 3 weeks ago she is on oral tablet control but she cannot remember when her last menstrual cycle exactly was. Denies chest pain, palpitations, shortness of breath, dyspnea, nausea, vomiting, diarrhea, abdominal pain,blurred vision, double vision, loss of vision, speech changes, LH, dizziness, syncope, headaches, wheezing, ST, URI, neck pain, weakness, bowel or bladder dysfunction, saddle anesthesia, numbness or tingling in bilateral upper or lower extremities equally, muscle paralysis, weakness in bilateral upper or lower extremities equally or rash. Reports she has not used IV drugs for almost 5 years - Related Data Allergies/Adverse Reactions: amoxicillin [Amoxicillin] Allergy (Verified 12/17/19 09:41) Past Medical History - General Information source: Patient - Social History Smoking Status: Current Every Day Smoker Family History: denies: Arthritis, CAD, COPD, CVA, DM, Hyperlipidemia, Hypertension, Malignancy, Thyroid Disfunction Renal/ Medical History: Denies: Hx Peritoneal Dialysis Psychiatric Medical History: Reports: Hx Depression - Immunizations Immunizations up to date: Yes Hx Diphtheria, Pertussis, Tetanus Vaccination: Yes Review of Systems - Review of Systems Constitutional: No symptoms reported EENT: No symptoms reported Cardiovascular: No symptoms reported Respiratory: No symptoms reported Gastrointestinal: No symptoms reported Genitourinary: See HPI Female Genitourinary: No symptoms reported Musculoskeletal: Back pain Skin: No symptoms reported Hematologic/Lymphatic: No symptoms reported Neurological/Psychological: No symptoms reported Physical Exam - Vital signs Vitals: Temp Pulse Resp BP Pulse Ox 98.3 F 110 H 16 137/80 H 100 04/08/20 14:04 04/08/20 14:04 04/08/20 14:04 04/08/20 14:04 04/08/20 14:04 - Notes Notes: MEDICATIONS: I agree with the patient medications as charted by the RN. ALLERGIES: I agree with the allergies as charted by the RN. PAST MEDICAL HISTORY/PAST SURGICAL HISTORY: Reviewed and agree as charted by RN. SOCIAL HISTORY: Reviewed and agree as charted by RN. FAMILY HISTORY: No significant familial comorbid conditions directly related to patient complaint EXAM: Reviewed vital signs as charted by RN. PHYSICAL EXAMINATION: reviewed vital signs by RN GENERAL: Well-appearing, well-nourished and in no acute distress. HEAD: Atraumatic, normocephalic. EYES: Pupils equal round and reactive to light, extraocular movements intact, conjunctiva are normal. ENT: Nares patent, oropharynx clear without exudates. Moist mucous membranes. NECK: Normal range of motion, supple without lymphadenopathy LUNGS: Breath sounds clear to auscultation bilaterally and equal. No wheezes rales or rhonchi. HEART: Regular rate and rhythm without murmurs ABDOMEN: Soft, nontender, nondistended abdomen. No guarding, no rebound. No masses appreciated. Left CVA tenderness on palpation Female : deferred Musculoskeletal: Normal range of motion, no pitting or edema. No cyanosis.Pain with flexion and extension at 20 degrees, positive straight leg test bilaterally Normal hip rotation. DTR +2 in BLE equally. Strength 5 out of 5 both distally and proximally to bilateral lower extremities normal motor and sensory function in BLE equally. Distal pulses + 2 BLE equally. Noted paraspinal tenderness near L1-L3. Strength 5 out of 5 in bilateral lower extremities equally. no spinal tenderness. No CVA tenderness bilaterally. Femoral pulses + 2 bilaterally and equally. No abrasions, scars, lacerations, ecchymosis of any recent trauma. normal gait. NEUROLOGICAL: Cranial nerves grossly intact. Normal speech, normal gait. Normal sensory, motor exams PSYCH: Normal mood, normal affect. SKIN: Warm, Dry, normal turgor, no rashes or lesions noted. Course - Re-evaluation Re-evalutation: 04/08/20 19:12 Patient is afebrile at this time, she is tachycardic at 110. Nurses notes reviewed CBC shows a leukocytosis of 17.1 1 with a shift, CMP negative for any hepatic or renal dysfunction. Lactic was 0.7. Urine hCG was negative. Urinalysis does show leuk esterase with positive nitrates and proteinuria. patient had a right EJ placed by Dr. Kendall for IV access due to there being some scar tissue unable to access any peripheral IV, patient was given cefepime 1 mg for antibiotic therapy and Toradol 30 mg for her pain. Discussed with Dr. Kendall, ER supervising physician, regarding pertinent laboratory diagnostic and clinical findings and he felt that patient needs to be admitted for leukocytosis of her pyelonephritis and further evaluation of her lower back pain with her history of IV drug use. We discussed with patient that she would need to be admitted she absolutely refused because she does not have anybody to watch her 2 children at home and does not have a director it. She states that she will return in the morning. after performing a Medical Screening Examination, I spoke with the patient at length in regards to leaving the hospital against medical advice. I discussed evaluation for their presenting complaint and recommended further evaluation. I do not believe the patient should leave but the patient is alert oriented x4, understands the risks and benefits of staying and leaving including disability and . Pt understands that they can return at any time for further care and is more than welcome to do so. Pt verbalizes this understanding. - Vital Signs Vital signs: Temp Pulse Resp BP Pulse Ox 98.3 F 110 H 16 137/80 H 100 04/08/20 14:04 04/08/20 14:04 04/08/20 14:04 04/08/20 14:04 04/08/20 14:04 - Laboratory Result Diagrams: 04/08/20 17:06 04/08/20 17:06 Laboratory results interpreted by me: 04/08/20 04/08/20 04/08/20 14:48 17:06 17:06 WBC 17.1 H Hgb 11.8 L Hct 34.5 L Absolute Neuts (auto) 13.7 H Seg Neutrophils % 79.9 H Sodium 136.1 L Carbon Dioxide 21 L Urine Protein 30 H Urine Nitrite POSITIVE H Urine Urobilinogen 2.0 H Ur Leukocyte Esterase LARGE H Urine Ascorbic Acid 40 H Discharge - Discharge Clinical Impression: Leukocytosis, Pyelonephritis, Low back pain, History of intravenous drug use in remission Condition: Stable Disposition: AGAINST MEDICAL ADVICE Additional Instructions: You are leaving AGAINST MEDICAL ADVICE today, it is advised that you stay stay for admission intravenous antibiotic therapy and for further work-up due to having a high white count which means you have a bacterial infection. You did receive antibiotic therapy 3 IV today however you need more as well as IV fluids and further evaluation Referrals: LIONEL GARZA MD [ACTIVE STAFF] - Follow up tomorrow
[2020-04-08] MEDS ORDERED: KETOROLAC TROMETHAMINE INJ/PF 30 MG/1 ML SDV IV ONE (17:13)
[2020-04-08 17:33] LABS: ABSOLUTE BASOPHILS # (AUTO) 0.1 10^3/uL (0.0-0.2); ABSOLUTE EOSINOPHILS # (AUTO) 0.1 10^3/uL (0.0-0.6); ABSOLUTE LYMPHOCYTES (AUTO) 2.2 10^3/uL (0.5-4.7); ABSOLUTE MONOCYTES (AUTO) 1.1 10^3/uL (0.1-1.4); ABSOLUTE NEUT (AUTO) 13.7 10^3/uL (1.7-8.2); BASOPHILS % (AUTO) 0.3 % (0-2); EOSINOPHILS % (AUTO) 0.5 % (0-6); HEMATOCRIT 34.5 % (36.0-47.0); HEMOGLOBIN 11.8 g/dL (12.0-15.5); LYMPHOCYTES % (AUTO) 13.1 % (13-45); MEAN CORPUSCULAR HEMOGLOBIN 29.9 pg (27.0-33.4); MEAN CORPUSCULAR HGB CONC 34.1 g/dL (32.0-36.0); MEAN CORPUSCULAR VOLUME 88 fl (80-97); MONOCYTES % (AUTO) 6.2 % (3-13); PLATELET COUNT 190 10^3/uL (150-450); RED BLOOD COUNT 3.93 10^6/uL (3.72-5.28); RED CELL DISTRIBUTION WIDTH 11.9 % (11.5-14.0); SEGMENTED NEUTROPHILS % (AUTO) 79.9 % (42-78); TOTAL CELLS COUNTED % (AUTO) 100 %; WHITE BLOOD COUNT 17.1 10^3/uL (4.0-10.5)
[2020-04-08] MEDS ORDERED: CEFTRIAXONE 1 GM/D5W RTU 1 GM/50 ML RTUPB IV ONE (17:46)
[2020-04-08 17:48] LABS: ALBUMIN 3.8 g/dL (3.5-5.0); ALKALINE PHOSPHATASE 80 U/L (38-126); ANION GAP 8 (5-19); ASPARTATE AMINO TRANSFERASE 26 U/L (14-36); BILIRUBIN,DIRECT 0.4 mg/dL (0.0-0.4); BILIRUBIN,TOTAL 0.8 mg/dL (0.2-1.3); BLOOD UREA NITROGEN 16 mg/dL (7-20); CALCIUM 9.1 mg/dL (8.4-10.2); CARBON DIOXIDE 21 mmol/L (22-30); CHLORIDE 107 mmol/L (98-107); GLUCOSE 94 mg/dL (75-110); POTASSIUM 4.3 mmol/L (3.6-5.0); TOTAL PROTEIN 7.1 g/dL (6.3-8.2)
[2020-04-08 17:53] LABS: VENOUS BLOOD BASE EXCESS 0.1 mmol/L; VENOUS BLOOD HCO3 24.8 mmol/L (20-32); VENOUS BLOOD PCO2 40.4 mmHg (35-63); VENOUS BLOOD PH 7.41 (7.30-7.42)
--- NOTE | 2020-04-08 18:38 | RADIOLOGY REPORT (SQ) ---
EXAM DESCRIPTION: CT ABD/PELVIS NO ORAL OR IV IMAGES COMPLETED DATE/TIME: 04/08/2020 6:15 pm REASON FOR STUDY: L flank pain x 6 days, worse with time, +UTI COMPARISON: None. TECHNIQUE: CT scan of the abdomen and pelvis performed without intravenous or oral contrast. Images reviewed with lung, soft tissue, and bone windows. Reconstructed coronal and sagittal MPR images revi ewed. All images stored on PACS. All CT scanners at this facility use dose modulation, iterative reconstruction, and/or weight based d osing when appropriate to reduce radiation dose to as low as reasonably achievable (ALARA). [facility]: Dose Right [facility]: CareDose [facility]: Dose Right [facility]: Teradose 4D [facility]: [email or web address] RADIATION DOSE: CT Rad equipment meets quality standard of care and radiation dose reduction techniq ues were employed. CTDIvol: 4.8 mGy. DLP: 236 mGy-cm.mGy. LIMITATIONS: None. FINDINGS: LOWER CHEST: No significant findings. No nodules or infiltrates. NON-CONTRASTED LIVER, SPLEEN, ADRENALS: Evaluation limited by lack of IV contrast. No identified sign ificant masses. PANCREAS: No masses. No peripancreatic inflammatory changes. GALLBLADDER: No calcified stones. No inflammatory changes to suggest cholecystitis. RIGHT KIDNEY AND URETER: No cysts identified. No solid masses. No calcified stones. No hydronephrosis or hydroureter. LEFT KIDNEY AND URETER: No cysts identified. No solid masses. No calcified stones. No hydronephrosis or hydroureter. AORTA AND RETROPERITONEUM: No aneurysm. No retroperitoneal masses or adenopathy. BOWEL AND PERITONEAL CAVITY: No obvious masses or inflammatory changes. No free fluid. APPENDIX: Normal. PELVIS, BLADDER, AND ABDOMINAL WALL:The urinary bladder is grossly unremarkable. There is a hypodens e structure in the region of the left adnexa which measures approximately 3.9 cm TR x 4.5 cm CC x 4.9 cm AP. BONES: No acute findings. OTHER: No other significant finding. IMPRESSION: No urolithiasis or evidence of obstructive uropathy. Nonspecific hypodense structure in the left adnexa which may represent an ovarian cyst measuring up t o 4.9 cm. Pelvic ultrasound may be of benefit. TECHNICAL DOCUMENTATION: JOB ID: [id number]-72 Quality ID # [id number]: Final reports with documentation of one or more dose reduction techniques (e.g., Au tomated exposure control, adjustment of the mA and/or kV according to patient size, use of iterative reconstruction technique) 2010 [employer]- All Rights Reserved Reading location - IP/workstation name: [email or web address]
[2020-04-08 19:52] VITALS: BP 116/61
== END 2020-04-08 19:26 | disposition left against medical advice (07) ==
LOC: ER 14:00
DX: N12 Tubulo-interstitial nephritis, not specified as acute or chronic (principal); M54.5 Low back pain; F17.200 Nicotine dependence, unspecified, uncomplicated; Z88.0 Allergy status to penicillin; R00.0 Tachycardia, unspecified; Z53.29 Procedure and treatment not carried out because of patient's decision for other reasons
CPT/HCPCS: 99285; 96375; 96365; 36415; 87040; 87086; 83605; 84703; 85025; 81025; 87077; 87088; 80053; 81001; 87186; 82803; 87150 ×26; 74176; J1885; J0696

== ENCOUNTER 2020-04-09 09:50 | Emergency (ER) | payer MEDICAID ==
[2020-04-09] MEDS ORDERED: CEFTRIAXONE 1 GM/D5W RTU 1 GM/50 ML RTUPB IV ONE (11:35)
[2020-04-09] MEDS ORDERED: RINGERS SOLUTION,LACTATED 1,000 ML IV ONE (11:36)
--- NOTE | 2020-04-09 11:37 | ER Document Report ---
ED Medical Screen (RME) - General Stated Complaint: BACK PAIN Time Seen by Provider: 04/09/20 11:31 Mode of Arrival: Ambulatory Notes: Patient presents for a kidney function with flank pain. Patient was here yesterday and was encouraged to stay to be admitted although patient left AMA. Patient was not given a prescription for antibiotics. Patient denies any fever, nausea or vomiting. I have greeted and performed a rapid initial assessment of this patient. A comprehensive ED assessment and evaluation of the patient, analysis of test results and completion of the medical decision making process will be conducted by additional ED providers. TRAVEL OUTSIDE OF THE [place] IN LAST 30 DAYS: No - Related Data Allergies/Adverse Reactions: amoxicillin [Amoxicillin] Allergy (Verified 04/09/20 11:36) Past Medical History Renal/ Medical History: Denies: Hx Peritoneal Dialysis Psychiatric Medical History: Reports: Hx Depression - Immunizations Immunizations up to date: Yes Hx Diphtheria, Pertussis, Tetanus Vaccination: Yes Physical Exam - Vital signs Vitals: Temp Pulse Resp BP Pulse Ox 98.2 F 126 H 16 133/76 H 100 04/09/20 09:55 04/09/20 09:55 04/09/20 09:55 04/09/20 09:55 04/09/20 09:55 - Back Back: CVA tenderness - bilateral Course - Vital Signs Vital signs: Temp Pulse Resp BP Pulse Ox 98.2 F 126 H 16 133/76 H 100 04/09/20 09:55 04/09/20 09:55 04/09/20 09:55 04/09/20 09:55 04/09/20 09:55
[2020-04-09 12:10] LABS: APPEARANCE,URINE CLEAR; BILIRUBIN,URINE NEGATIVE (NEGATIVE); COLOR,URINE YELLOW; GLUCOSE, URINE NEGATIVE (NEGATIVE); KETONES,URINE NEGATIVE (NEGATIVE); LEUKOCYTE ESTERASE,URINE SMALL (NEGATIVE); NITRITE,URINE NEGATIVE (NEGATIVE); PROTEIN,URINE NEGATIVE (NEGATIVE); URINE SPECIFIC GRAVITY 1.019
[2020-04-09 12:31] LABS: URINE AMPHETAMINES SCREEN NEGATIVE; URINE BARBITURATES SCREEN NEGATIVE; URINE COCAINE SCREEN NEGATIVE; URINE METHADONE SCREEN NEGATIVE; URINE PHENCYCLIDINE SCREEN NEGATIVE
[2020-04-09 12:33] LABS: URINE BENZODIAZEPINES SCREEN UNCONFIRMED POSITIVE; URINE MARIJUANA (THC) SCREEN UNCONFIRMED POSITIVE
--- NOTE | 2020-04-09 15:38 | ER Document Report ---
ED General - General Chief Complaint: Back Pain Stated Complaint: BACK PAIN Time Seen by Provider: 04/09/20 11:31 Primary Care Provider: SHI LORD MD [ACTIVE STAFF] - Follow up in 3-5 days ROSALIND COMER MD [ACTIVE PROVISIONAL STAFF] - Follow up in 3-5 days Mode of Arrival: Ambulatory TRAVEL OUTSIDE OF THE [place] IN LAST 30 DAYS: No - HPI Notes: Patient is a 29-year-old female with a past medical history of IV drug abuse 5 years ago and a history of pyelonephritis who presents with left back pain and flank pain. Patient states symptoms began several days ago. Patient denies any dysuria or hematuria. She states that her kidney infections always only have back pain. This feels just like a normal kidney infection to her. Patient was in the ER yesterday and had blood work done and a CAT scan. Her urine culture grew gram-negative rods but if final culture is pending. Patient was told to stay in the hospital for pyelonephritis and IV antibiotics but she refused and left AMA. Patient was not discharged with antibiotics. Patient states she felt better when she came home but the back pain again started today. She has not taken anything for the pain. She denies any fevers or chills. Patient has been eating and drinking well. She has an appointment made with the family doctor for Friday. She states she prefers not to stay in the hospital today either. Patient denies any saddle paresthesia, urinary incontinence, bowel incontinence, any leg weakness. She took a percocet yesterday without relief. She states that toradal helped her yesterday. - Related Data Allergies/Adverse Reactions: amoxicillin [Amoxicillin] Allergy (Verified 04/09/20 11:36) Past Medical History - General Information source: Patient, [facility] Records - Social History Smoking Status: Current Every Day Smoker Chew tobacco use (# tins/day): No Frequency of alcohol use: None Drug Abuse: Marijuana Family History: denies: Arthritis, CAD, COPD, CVA, DM, Hyperlipidemia, Hypertension, Malignancy, Thyroid Disfunction Renal/ Medical History: Denies: Hx Peritoneal Dialysis Psychiatric Medical History: Reports: Hx Depression - Immunizations Immunizations up to date: Yes Hx Diphtheria, Pertussis, Tetanus Vaccination: Yes Review of Systems - Review of Systems Notes: CONSTITUTIONAL: No fever, fatigue or weight loss. SKIN: No rash. HENT: No congestion, ear pain, or sore throat. EYES: No recent vision problems or eye pain. ENDOCRINE: No thyroid problems. No polyuria or polydipsia. CARDIOVASCULAR: No chest pain or edema. RESPIRATORY: No cough, shortness of breath, congestion, or wheezing. GASTROINTESTINAL: No nausea, vomiting, bloody stools or diarrhea. GENITOURINARY: No dysuria. MUSCULOSKELETAL: No joint pain or swelling. Positive for left back pain radiating into her left lower quadrant. LYMPHATIC: No swollen glands. NEUROLOGIC: No seizures. No headache, focal weakness or sensory changes. HEMATOLOGIC: No unusual bruising or bleeding. PSYCHIATRIC: No depression or anxiety. Physical Exam - Vital signs Vitals: Temp Pulse Resp BP Pulse Ox 98.2 F 126 H 16 133/76 H 100 04/09/20 09:55 04/09/20 09:55 04/09/20 09:55 04/09/20 09:55 04/09/20 09:55 - General General appearance: Appears well Notes: VITAL SIGNS: Within normal limits. GENERAL: No acute distress, non-toxic appearance. HEAD: Normal with no signs of head trauma. EYES: Conjunctiva normal, no discharge. EARS: Hearing grossly intact. NOSE: Normal. NECK: Normal range of motion, no tenderness, supple, no lymphadenopathy, No adenopathy, no JVD. CHEST: Clear breath sounds bilaterally. No wheezes, rales, or rhonchi. CARDIAC: Regular rate and rhythm. S1 and S2, without murmurs, gallops, or rubs. VASCULAR: No Edema. ABDOMEN: Discomfort to palpation of left flank and left lower quadrant. GASTROINTESTINAL: Bowel sounds normal GENITOURINARY: Normal, No tenderness LYMPATHTIC: No lymphadenopathy noted. MUSCULOSKELETAL: Good range of motion of all major joints. Extremities without clubbing, cyanosis or edema. No midline back tenderness to palpation. NEUROLOGICAL: Alert and oriented x 3. No focal sensory or strength deficits. Speech normal. Follows commands appropriately. Moves all extremities. No weakness. PSYCHIATRIC: Normal Affect, judgement and mood. SKIN: Normal appearance with no rashes or lesions. Course - Re-evaluation Re-evalutation: 04/09/20 20:43 Patient had a possible ovarian cyst on her CT scan yesterday. She did not have an ultrasound obtained then and left AMA. She does have pain in the left flank and left lower quadrant. I recommended she obtain an ultrasound. Ultrasound showed a 3.1 cm cyst. There was no evidence of torsion. Patient's vitals are within normal limits. She is afebrile. She is eating and drinking and in no acute distress. Patient states that she had to get stuck multiple times yesterday to obtain blood work and an IV. They eventually had to stick her for an EJ. Patient states she just had blood work done last night. She states she would really prefer not to have any more blood work. We did attempt to obtain an IV and blood work but patient stated that she did not want any more attempts. Urine culture does show gram-negative rods. According to previous urine cultures, this was susceptible to rocephin. Patient received Rocephin in the ER and Toradol. She will be discharged with Keflex for pyelonephritis. Patient was strongly urged to follow-up with the PCP this week. I also gave her a number for OB to follow-up about the cyst. She states she does have an OB already. Patient was given strict return precautions including fevers, worsening pain, vomiting, any other concerning symptoms. Due to her positive urine culture, I do believe this is likely pain from pyelonephritis. She states this is always how her pyelonephritis presents. I do not suspect epidural abscess. She has no midline back pain. She has no neurological or lower extremity symptoms. Patient states she has not used IV drugs in 5 years. She does not want us to obtain any blood work today. I believe this is reasonable as she just had blood work done last night and they did obtain blood cultures which are pending. Patient was instructed she will be called with the results of the urine culture if she requires a different antibiotic. She was given strict return precautions. Patient is very agreeable to the plan. - Vital Signs Vital signs: Temp Pulse Resp BP Pulse Ox 98.5 F 76 16 108/59 L 100 04/09/20 18:34 04/09/20 18:34 04/09/20 18:34 04/09/20 18:34 04/09/20 18:34 - Laboratory Laboratory results interpreted by me: 04/09/20 11:42 Urine Urobilinogen 2.0 H Ur Leukocyte Esterase SMALL H - Diagnostic Test Radiology reviewed: Image reviewed, Reports reviewed Discharge - Discharge Clinical Impression: Pyelonephritis Condition: Stable Disposition: HOME, SELF-CARE Instructions: Pyelonephritis ([facility]) Additional Instructions: Please follow-up with your family doctor this week. You have a 3.1 cm left ovarian cyst. Please follow-up with [facility]. You may take NSAIDs or Tylenol. Please return to the ER for any fevers, nausea, vomiting, worsening pain, any other concerning symptoms. Please take your antibiotics as prescribed. Prescriptions: Cephalexin Monohydrate [Keflex 500 mg Capsule] 500 mg PO BID 14 Days #28 capsule Naproxen [Naprosyn 250 mg Tablet] 250 mg PO BID PRN 7 Days #14 tablet PRN Reason: Referrals: SHI LORD MD [ACTIVE STAFF] - Follow up in 3-5 days ROSALIND COMER MD [ACTIVE PROVISIONAL STAFF] - Follow up in 3-5 days
[2020-04-09] MEDS ORDERED: KETOROLAC TROMETHAMINE 60 MG/2 ML SDV IM ONE (16:16)
[2020-04-09] MEDS ORDERED: CEFTRIAXONE INJ 1000 MG VIAL IM ONE (16:16)
--- NOTE | 2020-04-09 17:12 | RADIOLOGY REPORT (SQ) ---
EXAM DESCRIPTION: U/S NON OB PEL W/DOPPLER IMAGES COMPLETED DATE/TIME: 04/09/2020 4:52 pm REASON FOR STUDY: left ovarian cyst on CT, pain COMPARISON: CT abdomen and pelvis 04/08/2020 TECHNIQUE: Dynamic and static grayscale images acquired of the pelvis via transabdominal approach an d recorded on PACS. Additional selected color Doppler and spectral images recorded. LIMITATIONS: None. FINDINGS: UTERUS: Contour normal. No mass. ENDOMETRIAL STRIPE: No focal or generalized thickening. No masses. CERVIX: No nabothian cysts. RIGHT OVARY AND DOPPLER: Normal size. No worrisome masses. Normal arterial vascular flow without evid ence for torsion. LEFT OVARY AND DOPPLER: Normal size. Contains a 3.0 x 3.1 x 2.2 cm anechoic structure with posterior acoustic enhancement. No worrisome masses. Normal arterial vascular flow without evidence for torsi on. FREE FLUID: None noted. OTHER: No other significant finding. MEASUREMENTS: UTERUS: 7.0 x 5.8 x 3.9 cm ENDOMETRIAL STRIPE: 2 mm RIGHT OVARY: 3.0 x 2.5 x 2.2 cm LEFT OVARY: 3.7 x 3.9 x 2.9 cm IMPRESSION: Left ovarian cyst measuring up to 3.1 cm. In a premenopausal patient, this requires no follow-up. Otherwise, unremarkable pelvic ultrasound. TECHNICAL DOCUMENTATION: JOB ID: [id number] 2010 [employer]- All Rights Reserved Rev-10/31 Reading location - IP/workstation name: [email or web address]
[2020-04-09] MEDS ORDERED: LIDOCAINE 1% INJ-PF (10 MG/ML) 30 ML SDV ONE (18:02)
[2020-04-09 18:37] VITALS: BP 108/59
== END 2020-04-09 18:36 | disposition home or self-care (01) ==
LOC: ER 09:50
DX: N12 Tubulo-interstitial nephritis, not specified as acute or chronic (principal); N83.202 Unspecified ovarian cyst, left side; M54.9 Dorsalgia, unspecified; F17.200 Nicotine dependence, unspecified, uncomplicated; F12.10 Cannabis abuse, uncomplicated; Z88.0 Allergy status to penicillin
CPT/HCPCS: 99285; 96372; 81001; 80307; 76856; 93976; J1885; J3490; J0696